=== PATIENT | female | born 1980 | race American Indian/Alaskan Native ===

== ENCOUNTER 2018-08-07 18:04 | Emergency (ER) | payer SELFPAY ==
--- NOTE | 2018-08-07 18:23 | Emergency Department Report ---
Blank Doc - Documentation Documentation: This is a 37-year-old female that presents with vaginal bleeding and pelvic cr amping. Unsure if . This initial assessment/diagnostic orders/clinical plan/treatment(s) is/are subject to change based on patient's health status, clinical progression and re- assessment by fellow clinical providers in the ED. Further treatment and workup at subsequent clinical providers discretion. Patient/guardians urged not to elope from the ED as their condition may be serious if not clinically assessed and managed. Initial orders include: 1- Patient sent to [facility] for further evaluation and treatment 2- UA 3- labs
[2018-08-07 18:49] LABS: Basophils # (Auto) 0.1 K/mm3 (0.0-0.1); Eosinophils # (Auto) 0.2 K/mm3 (0.0-0.4); Eosinophils % (Auto) 1.8 % (0.0-4.3); Hemoglobin 11.9 gm/dl (10.1-14.3); Lymphocytes # (Auto) 3.4 K/mm3 (1.2-5.4); Lymphocytes % (Auto) 35.1 % (13.4-35.0); Mean Corpuscular HGB Conc 33 % (30-34); Mean Corpuscular Volume 75 fl (79-97); Monocytes # (Auto) 0.7 K/mm3 (0.0-0.8); Monocytes % (Auto) 7.6 % (0.0-7.3); Platelet Count 327 K/mm3 (140-440); Red Blood Count 4.79 M/mm3 (3.65-5.03); Red Cell Distribution Width 16.2 % (13.2-15.2)
[2018-08-07 19:41] LABS: Bilirubin,Urine NEG (Negative); Blood,Urine LG (Negative); Color,Urine Amber (Yellow); Mucus,Urine 1+ /HPF; RBC,Urine > 182.0 /HPF (0.0-6.0)
[2018-08-07 20:22] VITALS: BP 140/95
--- NOTE | 2018-08-07 20:32 | Emergency Department Report ---
ED Female HPI - General Chief complaint: Vaginal Bleeding Stated complaint: VAGINAL BLEEDING Time Seen by Provider: 08/07/18 18:22 Source: patient Mode of arrival: Ambulatory Limitations: No Limitations - History of Present Illness Initial comments: Pt is a 37 yo female who presents to the ED with c/o vaginal bleeding that began two days ago. She states that initially she was having heavy bleeding and passing clots the first two days but has since decreased slightly today. she states she is changing her pad approximately every 1-2 hours. she denies any abdominal pain, pelvic pain, urinary sx. she states it is time for her menstrual cycle. she states her cycles are usually 5 days long. she denies any N/V/D or fever. she states intermittently she has had heavy menstrual cycles over the years. pt states she has not seen an [employer] since she moved here from [place] a year ago. she states she also has a hx of hyperthyroidism and states she has not t aken any medication in over a year since moving. - Related Data Previous Rx's Medication Instructions Recorded Last Taken Type medroxyPROGESTERone ACETATE 10 mg PO QDAY 5 Days #5 tablet 08/07/18 Unknown Rx [Provera] Allergies Allergy/AdvReac Type Severity Reaction Status Date / Time No Known Allergies Allergy Unverified 08/07/18 18:05 ED Review of Systems ROS: Stated complaint: VAGINAL BLEEDING Other details as noted in HPI Comment: All other systems reviewed and negative ED Past Medical Hx - Past Medical History Additional medical history: hyperthyroid - Surgical History Past Surgical History?: No - Social History Smoking Status: Never Smoker Substance Use Type: None - Medications Home Medications: Home Medications Medication Instructions Recorded Confirmed Last Taken Type medroxyPROGESTERone ACETATE 10 mg PO QDAY 5 Days #5 tablet 08/07/18 Unknown Rx [Provera] ED Physical Exam - General Limitations: No Limitations General appearance: alert, in no apparent distress - Head Head exam: Present: atraumatic, normocephalic - Eye Eye exam: Present: normal appearance, PERRL - ENT ENT exam: Present: mucous membranes moist - Respiratory Respiratory exam: Present: normal lung sounds bilaterally. Absent: respiratory distress, wheezes, rales, rhonchi, stridor, chest wall tenderness, accessory muscle use, decreased breath sounds, prolonged expiratory - Cardiovascular Cardiovascular Exam: Present: regular rate, normal rhythm, normal heart sounds. Absent: systolic murmur, diastolic murmur, rubs, gallop - GI/Abdominal GI/Abdominal exam: Present: soft, normal bowel sounds. Absent: distended, tenderness, guarding, rebound, rigid - Neurological Exam Neurological exam: Present: alert, oriented X3 - Psychiatric Psychiatric exam: Present: normal affect, normal mood - Skin Skin exam: Present: warm, dry, intact ED Course Vital Signs 08/07/18 08/07/18 18:22 20:20 Temperature 98.6 F 98.9 F Pulse Rate 105 H 83 Respiratory 16 20 Rate Blood Pressure 139/80 Blood Pressure 140/95 [Right] O2 Sat by Pulse 98 Oximetry ED Medical Decision Making - Lab Data Result diagrams: 08/07/18 18:30 Lab Results 08/07/18 08/07/18 08/07/18 Range/Units 18:30 18:30 Unknown WBC 9.6 (4.5-11.0) K/mm3 RBC 4.79 (3.65-5.03) M/mm3 Hgb 11.9 (10.1-14.3) gm/dl Hct 36.0 (30.3-42.9) % MCV 75 L (79-97) fl MCH 25 L (28-32) pg MCHC 33 (30-34) % RDW 16.2 H (13.2-15.2) % Plt Count 327 (140-440) K/mm3 Lymph % (Auto) 35.1 H (13.4-35.0) % Harding % (Auto) 7.6 H (0.0-7.3) % Eos % (Auto) 1.8 (0.0-4.3) % Baso % (Auto) 1.0 (0.0-1.8) % Lymph # 3.4 (1.2-5.4) K/mm3 Harding # 0.7 (0.0-0.8) K/mm3 Eos # 0.2 (0.0-0.4) K/mm3 Baso # 0.1 (0.0-0.1) K/mm3 Seg Neutrophils % 54.5 (40.0-70.0) % Seg Neutrophils # 5.2 (1.8-7.7) K/mm3 HCG, Quant < 2 (0-4) mIU/mL Urine Color Reanna (Yellow) Urine Turbidity Turbid (Clear) Urine pH 6.0 (5.0-7.0) Ur Specific [place] 1.029 (1.003-1.030) Urine Protein 100 mg/dl (Negative) mg/dL Urine Glucose (UA) 50 (Negative) mg/dL Urine Ketones Tr (Negative) mg/dL Urine Blood Lg (Negative) Urine Nitrite Neg (Negative) Urine Bilirubin Neg (Negative) Urine Urobilinogen 2.0 (<2.0) mg/dL Ur Leukocyte Esterase Neg (Negative) Urine WBC (Auto) 10.0 H (0.0-6.0) /HPF Urine RBC (Auto) > 182.0 (0.0-6.0) /HPF Urine Mucus 1+ /HPF Vital Signs 08/07/18 08/07/18 18:22 20:20 Temperature 98.6 F 98.9 F Pulse Rate 105 H 83 Respiratory 16 20 Rate Blood Pressure 139/80 Blood Pressure 140/95 [Right] O2 Sat by Pulse 98 Oximetry - Medical Decision Making Pt is a 37 yo female who presents to the ED with c/o vaginal bleeding that began two days ago. She states that initially she was having heavy bleeding and passing clots the first two days but has since decreased slightly today. she states she is changing her pad approximately every 1-2 hours. she denies any abdominal pain, pelvic pain, urinary sx. she states it is time for her menstrual cycle. she states her cycles are usually 5 days long. she denies any N/V/D or fever. she states intermittently she has had heavy menstrual cycles over the years. pt states she has not seen an [employer] since she moved here from [place] a year ago. she states she also has a hx of hyperthyroidism and states she has not taken any medication in over a year since moving. labs are WNL. H/H are normal. Hcg quant is negative. UA with WBCs but no leukocyte esterase or nitrites, no urinary sx, likely due to presence of blood. no abd tenderness on exam. vitals with mildly elevated HR, on auscultation HR is normal, on repeat vitals HR nor mal. will give pt prescription for provera as she requests to have something to decrease her cycle bleeding. will have pt follow up with [employer] in the next 2-3 days. will have pt follow up with PCP in the next 2-3 days to discuss her hx of hyperthyroidism. return to the emergency room for any new or worsening symptoms. Critical care attestation.: If time is entered above; I have spent that time in minutes in the direct care of this critically ill patient, excluding procedure time. ED Disposition Clinical Impression: Menorrhagia Qualifiers: Menorrahagia type: with regular cycle Qualified Code(s): N92.0 - Excessive and frequent menstruation with regular cycle Disposition: TO HOME OR SELFCARE Is pt being admited?: No Does the pt Need Aspirin: No Condition: Stable Instructions: Menorrhagia (ED) Additional Instructions: please take medication as prescribed. Follow up with [employer] in the next 2-3 days. Follow up with a primary care doctor in the next 2-3 days to discuss your history of hyperthyroidism. return to the emergency room for any new or worsening symptoms. Prescriptions: medroxyPROGESTERone ACETATE [Provera] 10 mg PO QDAY 5 Days #5 tablet Referrals: MIGUELINA JESSICA MD [Primary Care Provider] - 2-3 Days [facility] [Outside] - 2-3 Days [facility] [Outside] - 2-3 Days [facility] [Provider Group] - 2-3 Days Time of Disposition: 20:32 Print Language: CZECH
== END 2018-08-07 20:43 | disposition home or self-care (01) ==
LOC: ED 18:04
DX: N93.9 Abnormal uterine and vaginal bleeding, unspecified (principal); E05.90 Thyrotoxicosis, unspecified without thyrotoxic crisis or storm; N92.0 Excessive and frequent menstruation with regular cycle
CPT/HCPCS: 36415; 81001; 84702; 85025; 87086